=== PATIENT | male | born 1980 | race African-American/Black ===

== ENCOUNTER 2018-09-25 16:59 | Observation (INO) | payer BC ==
--- NOTE | 2018-09-25 17:37 | RAD REPORT ---
EXAM DESCRIPTION: US - Extremity Venous Uni Ltd - 09/25/2018 5:28 pm CLINICAL HISTORY: PAIN Leg swelling and edema. COMPARISON: <Comparisons> FINDINGS: Left lower extremity venous system was interrogated with Doppler technique. Normal flow, c ompressibility and augmentation was noted. There is no DVT present. IMPRESSION: No evidence of left lower extremity deep venous thrombosis.
[2018-09-25 19:10] LABS: Absolute Lymphocytes (CBC) 2.6 K/uL (0.7-4.9); Absolute Neutrophil 3.9 K/uL (1.8-8.0); Basophils % 0.5 % (0-1.3); Eosinophils % 1.4 % (0-4.4); Hematocrit 52.7 % (39.6-49.0); Lymphocytes % 34.5 % (15.3-44.8); MPV 7.6 fL (7.6-11.3); Monocytes % 13.1 % (3.3-12.3); RBC Red Blood Cell Count 6.12 M/uL (4.33-5.43)
[2018-09-25 19:14] LABS: Protime INR 1.04
[2018-09-25 19:30] LABS: ALT/SGPT 62 U/L (12-78); AST/SGOT 34 U/L (15-37); Albumin 4.2 g/dL (3.4-5.0); Alkaline Phosphatase 72 U/L (45-117); BUN Blood Urea Nitrogen 13 mg/dL (7-18); Bicarbonate 26 mmol/L (21-32); Bilirubin Direct 0.2 mg/dL (0-0.2); Bilirubin Total 0.5 mg/dL (0.2-1.0); Glucose Level 83 mg/dL (74-106); Magnesium 2.2 mg/dL (1.8-2.4); NT PRO-BNP 36 pg/mL (<125); Potassium 4.3 mmol/L (3.5-5.1); Protein, Total 7.7 g/dL (6.4-8.2); Sodium Level 140 mmol/L (136-145); Troponin (Emerg Dept Use Only) < 0.02 ng/mL (0.0-0.045)
--- NOTE | 2018-09-25 20:00 | EDPHYS ---
Physician Documentation [facility] Name: Eugene Betancur Age: 38 yrs Sex: Male : 1980 Arrival Date: 09/25/2018 Time: 17:02 Bed 28 Private MD: Denis Lehman ED Physician Fazal Rico HPI: 09/25 18:55 This 38 yrs old Black Male presents to ER via Ambulatory with complaints of Leg Pain, cp Shortness Of Breath. 18:55 The patient presents with pain, that is acute, tenderness. The complaints affect the cp left calf. Context: the patient can fully bear weight, the patient is able to ambulate, without difficulty. 18:55 The patient has shortness of breath with light activity. Onset: The symptoms/episode cp began/occurred 1.5 week(s) ago. Duration: The symptoms are continuous, and are steadily getting worse. Associated signs and symptoms: Pertinent negatives: chest pain, productive cough, diaphoresis, fever, hemoptysis. Severity of symptoms: in the emergency department the symptoms are unchanged despite home interventions. Treatment prior to arrival includes: no previous treatment. Historical: - Allergies: 17:05 No Known Allergies; sv - Home Meds: 17:07 Risperdal Oral [Active]; anastrozole 1 mg oral tab [Active]; sv - PMHx: 17:05 Hypertension; sv - PSHx: 17:05 fasciotomy left arm; sv - Immunization history:: Adult Immunizations not up to date. - Social history:: Smoking status: Patient/guardian denies using tobacco. - Ebola Screening: : No symptoms or risks identified at this time. ROS: 19:00 Constitutional: Negative for body aches, chills, fever, poor PO intake. cp 19:00 Eyes: Negative for injury, pain, redness, and discharge. cp 19:00 ENT: Negative for drainage from ear(s), ear pain, sore throat, difficulty swallowing, difficulty handling secretions. 19:00 Neck: Negative for pain with movement, pain at rest, stiffness. 19:00 Cardiovascular: Negative for chest pain, edema, palpitations. 19:00 Respiratory: Positive for shortness of breath, on exertion. Negative for cough, wheezing. 19:00 Abdomen/GI: Negative for abdominal pain, nausea, vomiting, and diarrhea, black/tarry stool, rectal bleeding. 19:00 Back: Negative for pain at rest, pain with movement. 19:00 : Negative for urinary symptoms. 19:00 Skin: Negative for rash. 19:00 Neuro: Negative for altered mental status, dizziness, headache, syncope, weakness. 19:00 All other systems are negative. Exam: 18:40 ECG was reviewed by the Attending Physician. cp 19:05 Constitutional: The patient appears in no acute distress, alert, awake, cp non-diaphoretic, non-toxic, well developed, well nourished. 19:05 Head/Face: Normocephalic, atraumatic. cp 19:05 Eyes: Periorbital structures: appear normal, Conjunctiva: normal, no exudate, no injection, Sclera: no appreciated abnormality, Lids and lashes: appear normal, bilaterally. 19:05 ENT: External ear(s): are unremarkable, Nose: is normal, Mouth: Lips: moist, Oral mucosa: pink and intact, moist, Posterior pharynx: is normal, airway is patent, no erythema, no exudate. 19:05 Neck: ROM/movement: is normal, is supple, without pain, no range of motions limitations. 19:05 Chest/axilla: Inspection: normal, Palpation: is normal, no crepitus, no tenderness. 19:05 Cardiovascular: Rate: normal, Rhythm: regular, Heart sounds: murmur, not appreciated, Edema: is not appreciated. 19:05 Respiratory: the patient does not display signs of respiratory distress, Respirations: normal, no use of accessory muscles, no retractions, no splinting, no tachypnea, labored breathing, is not present, Breath sounds: are clear throughout, no decreased breath sounds, no stridor, no wheezing. 19:05 Abdomen/GI: Inspection: abdomen appears normal, Palpation: abdomen is soft and non-tender, in all quadrants. 19:05 Back: pain, is absent, ROM is normal. 19:05 Musculoskeletal/extremity: DVT Exam: no swelling, negative Homans' sign noted on exam, no erythema, no increased warmth, pain, that is mild, of the left leg, tenderness, that is mild, of the left leg. 19:05 Skin: no rash present. 19:05 Neuro: Orientation: to person, place \T\ time. Mentation: is normal, Cerebellar function: is grossly normal, Motor: moves all fours, strength is normal, Sensation: is normal. Vital Signs: 17:05 BP 146 / 88; Pulse 99; Resp 18; Temp 98.2; Pulse Ox 97% ; Weight 99.79 kg; Height 5 ft. sv 6 in. (167.64 cm); Pain 0/10; 18:33 BP 123 / 93; Pulse 78; Resp 20 S; Pulse Ox 98% on R/A; ca1 19:04 BP 119 / 93; Pulse 69; Resp 17; Temp 98.3(O); Pulse Ox 99% on R/A; ca1 19:28 BP 136 / 95; Pulse 84; Resp 15 S; Temp 98.1(O); Pulse Ox 98% on R/A; ca1 20:34 BP 128 / 98; Pulse 65; Resp 17 S; Temp 97.7; Pulse Ox 99% on R/A; ca1 17:05 Body Mass Index 35.51 (99.79 kg, 167.64 cm) sv MDM: 18:53 Patient medically screened. 19:57 Data reviewed: vital signs, nurses notes, lab test result(s), EKG, I have discussed the patient's presentation/case with the attending Emergency Department Physician; and as a result, I will admit patient. Physician consultation: Denis Lehman MD was called at 19:57, was contacted at 19:57, regarding admission, to the telemetry unit. patient's condition. 09/25 18:55 Order name: Basic Metabolic Panel; Complete Time: 19:30 09/25 19:31 Interpretation: Normal except: CL 109; GFR 77. 09/25 18:55 Order name: CBC with Diff; Complete Time: 19:24 09/25 19:31 Interpretation: Normal except: RBC 6.12; HCT 52.7; MN% 13.1. 09/25 18:55 Order name: LFT's; Complete Time: 19:30 09/25 18:55 Order name: Magnesium; Complete Time: 19:30 09/25 18:55 Order name: NT PRO-BNP; Complete Time: 19:30 cp 09/25 18:55 Order name: PT-INR; Complete Time: 19:24 09/25 18:55 Order name: Troponin (emerg Dept Use Only); Complete Time: 19:30 cp 09/25 18:55 Order name: D-Dimer; Complete Time: 19:24 cp 09/25 20:18 Order name: Basic Metabolic Panel EDSD 09/25 20:18 Order name: Basic Metabolic Panel; Complete Time: 16:16 EDSD 09/25 20:18 Order name: Troponin I EDSD 09/25 20:18 Order name: Troponin I; Complete Time: 16:16 EDSD 09/25 20:19 Order name: CBC with Automated Diff EDSD 09/25 20:19 Order name: CBC with Automated Diff; Complete Time: 16:16 EDSD 09/25 17:08 Order name: US Extremity Venous Unilateral Ltd; Complete Time: 19:24 sv 09/25 18:55 Order name: EKG; Complete Time: 18:55 cp 09/25 18:55 Order name: Cardiac monitoring; Complete Time: 19:03 cp 09/25 18:55 Order name: EKG - Nurse/Tech; Complete Time: 19:03 cp 09/25 18:55 Order name: IV Saline Lock; Complete Time: 19:04 cp 09/25 18:55 Order name: Labs collected and sent; Complete Time: 19:04 cp 09/25 18:55 Order name: O2 Per Protocol; Complete Time: 19:04 cp 09/25 19:24 Order name: XRAY Chest (1 view); Complete Time: 16:16 cp 09/25 20:18 Order name: CONS Physician Consult [facility] 09/25 20:18 Order name: Regular [facility] 09/25 20:18 Order name: EKG Electrocardiogram [facility] 09/25 20:18 Order name: EKG Electrocardiogram [facility] 09/25 20:19 Order name: EKG Electrocardiogram [facility] 09/25 20:19 Order name: EKG Electrocardiogram [facility] 09/25 20:19 Order name: Troponin I; Complete Time: 16:16 EDSD 09/25 18:55 Order name: O2 Sat Monitoring; Complete Time: 19:04 cp EC:40 Rate is 77 beats/min. Rhythm is regular. PA interval is normal. QRS interval is normal. cp QT interval is normal. T waves are Inverted in leads II, III, aVF, V5, V6. Interpreted by me. Reviewed by me. Administered Medications: 20:22 Drug: Aspirin Chewable Tablet 324 mg Route: PO; ca1 20:45 Follow up: Response: No adverse reaction ca1 Disposition: 09/25/18 19:59 Hospitalization ordered by Denis Lehman for Observation. Preliminary diagnosis are Shortness of breath, Abnormal electrocardiogram [ECG] [EKG]. - Bed requested for Telemetry/MedSurg (observation). - Status is Observation. ca1 - Condition is Stable. - Problem is new. - Symptoms are unchanged. UTI on Admission? No Addendum: 09/27/2018 07:01 Co-signature as Attending Physician, Fazal Rico MD. r n Signatures: Dispatcher [employer] EDMS Alma Vincent, RN RN Gale Emery RN RN dw Fazal Rico MD MD rn Page, Corey, PA PA cp Shaniqua Madison RN RN ca1 Corrections: (The following items were deleted from the chart) 09/25 19:31 19:31 Normal except: RBC 6.12; HCT 52.7. cp cp 20:21 19:59 Hospitalization Ordered by Denis Lehman MD for Observation. Preliminary dw diagnosis is Shortness of breath; Abnormal electrocardiogram [ECG] [EKG]. Bed requested for Telemetry/MedSurg (observation). Status is Observation. Condition is Stable. Problem is new. Symptoms are unchanged. UTI on Admission? No. cp 20:53 20:21 09/25/2018 19:59 Hospitalization Ordered by Denis Lehman MD for Observation. ca1 Preliminary diagnosis is Shortness of breath; Abnormal electrocardiogram [ECG] [EKG]. Bed requested for Telemetry/MedSurg (observation). Status is Observation. Condition is Stable. Problem is new. Symptoms are unchanged. UTI on Admission? No. dw
--- NOTE | 2018-09-25 20:00 | ER ---
Nurse's Notes [facility] Name: Eugene Betancur Age: 38 yrs Sex: Male : 1980 Arrival Date: 09/25/2018 Time: 17:02 Bed 28 Private MD: Denis Lehman Diagnosis: Shortness of breath;Abnormal electrocardiogram [ECG] [EKG] Presentation: 09/25 17:04 Presenting complaint: Patient states: SOB x 1.5 weeks and right calf pain x 1 week. sv Stated around the time that he noticed the SOB he started taking Anastrozole as well. Transition of care: patient was not received from another setting of care. Onset of symptoms was September 2018. Initial Sepsis Screen: Does the patient meet any 2 criteria? No. Patient's initial sepsis screen is negative. Does the patient have a suspected source of infection? No. Patient's initial sepsis screen is negative. Care prior to arrival: None. 17:04 Method Of Arrival: Ambulatory sv 17:04 Acuity: MELECIO 3 sv 18:39 Risk Assessment: Do you want to hurt yourself or someone else? Patient reports no ca1 desire to harm self or others. Triage Assessment: 17:04 General: Appears in no apparent distress. uncomfortable, well groomed, well developed, sv Behavior is calm, cooperative, appropriate for age. Pain: Denies pain. Neuro: Level of Consciousness is awake, alert, obeys commands, Oriented to person, place, time, situation. Respiratory: Reports shortness of breath Airway is patent Respiratory effort is even, unlabored, Respiratory pattern is regular, symmetrical, Onset: The symptoms/episode began/occurred 1.5 weeks ago, the patient has mild shortness of breath. Historical: - Allergies: 17:05 No Known Allergies; sv - Home Meds: 17:07 Risperdal Oral [Active]; anastrozole 1 mg oral tab [Active]; sv - PMHx: 17:05 Hypertension; sv - PSHx: 17:05 fasciotomy left arm; sv - Immunization history:: Adult Immunizations not up to date. - Social history:: Smoking status: Patient/guardian denies using tobacco. - Ebola Screening: : No symptoms or risks identified at this time. Screenin:33 Abuse screen: Denies threats or abuse. Denies injuries from another. Nutritional ca1 screening: No deficits noted. Tuberculosis screening: No symptoms or risk factors identified. Fall Risk None identified. Assessment: 18:33 General: Appears in no apparent distress. comfortable, Behavior is calm, cooperative, ca1 appropriate for age. Pain: Complains of pain in left calf Pain does not radiate. Pain currently is 4 out of 10 on a pain scale. Neuro: Level of Consciousness is awake, alert, obeys commands, Oriented to person, place, time, situation. Cardiovascular: Heart tones S1 S2 present Capillary refill < 3 seconds Patient's skin is warm and dry. Rhythm is sinus rhythm. Respiratory: Reports shortness of breath on exertion since 1.5 weeks ago Airway is patent Respiratory effort is even, unlabored, Respiratory pattern is regular, symmetrical, Breath sounds are clear bilaterally. GI: Abdomen is round non-distended, Bowel sounds present X 4 quads. Abd is soft and non tender X 4 quads. : No deficits noted. No signs and/or symptoms were reported regarding the genitourinary system. EENT: No deficits noted. No signs and/or symptoms were reported regarding the EENT system. Derm: Skin is intact, is healthy with good turgor, Skin is pink, warm \T\ dry. Musculoskeletal: Circulation, motion, and sensation intact. Capillary refill < 3 seconds, Range of motion: intact in all extremities. 19:28 Reassessment: Patient appears in no apparent distress at this time. Patient and/or ca1 family updated on plan of care and expected duration. Pain level reassessed. Patient is alert, oriented x 3, equal unlabored respirations, skin warm/dry/pink. 20:34 Reassessment: Patient appears in no apparent distress at this time. Patient is alert, ca1 oriented x 3, equal unlabored respirations, skin warm/dry/pink. Vital Signs: 17:05 BP 146 / 88; Pulse 99; Resp 18; Temp 98.2; Pulse Ox 97% ; Weight 99.79 kg; Height 5 ft. sv 6 in. (167.64 cm); Pain 0/10; 18:33 BP 123 / 93; Pulse 78; Resp 20 S; Pulse Ox 98% on R/A; ca1 19:04 BP 119 / 93; Pulse 69; Resp 17; Temp 98.3(O); Pulse Ox 99% on R/A; ca1 19:28 BP 136 / 95; Pulse 84; Resp 15 S; Temp 98.1(O); Pulse Ox 98% on R/A; ca1 20:34 BP 128 / 98; Pulse 65; Resp 17 S; Temp 97.7; Pulse Ox 99% on R/A; ca1 17:05 Body Mass Index 35.51 (99.79 kg, 167.64 cm) sv ED Course: 17:02 Patient arrived in ED. mr 17:03 Denis Lehman MD is Private Physician. mr 17:05 Triage completed. sv 17:07 Arm band placed on. sv 17:28 US Extremity Venous Unilateral Ltd In Process Unspecified. EDMS 17:29 Ultrasound completed. Patient tolerated well. Patient taken to [facility], Patient moved lc3 back from ultrasound. 18:28 Shaniqua Madison RN is Primary Nurse. ca1 18:33 Patient has correct armband on for positive identification. Placed in gown. Bed in low ca1 position. Call light in reach. Side rails up X 1. dynamite reclaimer on. Pulse ox on. NIBP on. Warm blanket given. 18:49 Isaiah Mesa PA is PHCP. cp 18:50 Fazal Rico MD is Attending Physician. cp 19:00 Inserted saline lock: 20 gauge in left antecubital area, using aseptic technique. Blood ca1 collected. 19:59 Denis Lehman MD is Hospitalizing Provider. cp 20:12 XRAY Chest (1 view) In Process Unspecified. EDMS 20:32 No provider procedures requiring assistance completed. Patient admitted, IV remains in ca1 place. Administered Medications: 20:22 Drug: Aspirin Chewable Tablet 324 mg Route: PO; ca1 20:45 Follow up: Response: No adverse reaction ca1 Outcome: 19:59 Decision to Hospitalize by Provider. cp 20:43 Admitted to Tele accompanied by tech, via wheelchair, room 408, with chart, Report ca1 called to Katie Hollingsworth RN 20:43 Condition: stable 20:43 Instructed on the need for admit. 20:53 Patient left the ED. ca1 Signatures: Dispatcher [employer] EDMS Alma Vincent RN RN Terra Godwin mr Isaiah Mesa PA PA cp Maria Victoria Guevara lc3 Shaniqua Madison RN RN ca1 Corrections: (The following items were deleted from the chart) 17:07 17:04 Presenting complaint: Patient states: SOB x 1.5 weeks and right calf pain x 1 sv week. sv
--- NOTE | 2018-09-25 20:24 | RAD REPORT ---
EXAM DESCRIPTION: RAD - Chest Single View - 09/25/2018 8:12 pm CLINICAL HISTORY: SOB Chest pain. COMPARISON: CHEST PA AND LAT 2 VIEW dated 08/25/2013; CHEST SINGLE VIEW dated 10/14/2011; ABDOMEN ACUT E SERIES dated 04/20/2010; CHEST PA AND LAT 2 VIEW dated 06/14/2008 FINDINGS: Portable technique limits examination quality. The lungs are grossly clear. The heart is normal in size. No displaced fractures. IMPRESSION: No acute intrathoracic process suspected.
[2018-09-25] MEDS ORDERED: ASPIRIN 81 MG CHEWABLE TABLET ONE (20:34)
[2018-09-25 22:42] VITALS: BMI 35.2
[2018-09-26 03:37] LABS: Absolute Lymphocytes (CBC) 3.2 K/uL (0.7-4.9); Absolute Neutrophil 3.4 K/uL (1.8-8.0); Basophils % 0.4 % (0-1.3); Eosinophils % 2.7 % (0-4.4); Hematocrit 51.3 % (39.6-49.0); Lymphocytes % 40.8 % (15.3-44.8); MPV 7.9 fL (7.6-11.3); Monocytes % 12.8 % (3.3-12.3); RBC Red Blood Cell Count 5.98 M/uL (4.33-5.43)
[2018-09-26 03:46] LABS: Potassium 4.1 mmol/L (3.5-5.1)
--- NOTE | 2018-09-26 07:56 | EKG ---
Test Date: 2018-09-25 Test Time: 18:39:20 Wire Dropper: CHYNA MEASUREMENT RESULTS: Intervals: Rate: 77 IN: 166 QRSD: 84 QT: 358 QTc: 405 [place]: P: 18 IN: 166 QRS: 46 T: -28 INTERPRETIVE STATEMENTS: Normal sinus rhythm ST & T wave abnormality, consider inferolateral ischemia Abnormal ECG Compared to ECG 04/20/2010 01:20:40 ST (T wave) deviation now present Possible ischemia now present Left-axis deviation no longer present Electronically Signed On 09-26-18 07:55:24 CDT by Shaun Cohen
[2018-09-26 08:14] LABS: Urine Appearance CLEAR; Urine Bilirubin NEGATIVE (NEG); Urine Blood NEGATIVE (NEG); Urine Color YELLOW; Urine Glucose NEGATIVE (NEG); Urine Protein NEGATIVE (NEG); Urine Specific Gravity 1.025 (1.005-1.030); Urine Urobilinogen 0.2 mg/dL (0.2-1.0)
[2018-09-26] MEDS ORDERED: ENOXAPARIN 40 MG/0.4 ML SQ SCH (09:00)
[2018-09-26] MEDS ORDERED: ASPIRIN EC 81 MG TAB PO SCH (09:00)
[2018-09-26 10:16] LABS: Urine Bacteria <20 /HPF (NONE SEEN); Urine Culture Reflex Order NOT NEEDED; Urine RBC NONE SEEN /HPF (NONE SEEN)
--- NOTE | 2018-09-26 11:45 | RAD REPORT ---
EXAM DESCRIPTION: CT - Chest Angio - 09/26/2018 11:21 am CLINICAL HISTORY: Shortness of breath COMPARISON: September 25, 2018 chest x-ray TECHNIQUE: Dynamically enhanced axial 3 mm thick images of the chest were obtained during administra tion of <100> mL Isovue 370 IV contrast. Coronal and oblique reconstruction images were generated and reviewed. Exam utilizes a protocol for optimal evaluation of pulmonary arterial tree. Maximum intensity projections 3D imaging was utilized All CT scans are performed using dose optimization technique as appropriate and may include automated exposure control or mA/KV adjustment according to patient size. FINDINGS: A pulmonary embolus is not seen. The main pulmonary artery is dilated. The heart is mildly enlarged. Evaluation of the peripheral pulmonary arteries is suboptimal secondary to respiratory mot ion artifact A thoracic aortic aneurysm is not noted. A pleural effusion is not seen. A pericardial effusion is not seen. A lung consolidation is not present. IMPRESSION: Negative for a pulmonary embolism. Dilated main pulmonary artery is nonspecific. It can be seen with pulmonary arterial hypertension
[2018-09-26 13:51] VITALS: TEMP 97.8
[2018-09-26 15:59] VITALS: O2SAT 95
[2018-09-26 16:19] VITALS: BP 144/71
--- NOTE | 2018-09-26 23:01 | CON ---
Date of Consultation: 09/26/2018 Reason For Consultation: Shortness of breath. History Of Present Illness: Mr. Betancur is a 38-year-old, black male with history of hypertension who came in mostly because of leg pain and shortness of breath. He denied any chest pain, nausea, vomiti ng, diaphoresis, PND, orthopnea, pedal edema, palpitations, or syncope. By the time I saw him, he burgos d negative laboratory evaluation. EKG showed LVH. Venous Doppler of the legs was negative. Chest x -ray was negative. Troponin was negative. CPKs and MBs were negative. BNP was negative. Past Medical History: Hypertension. Allergies: NONE. Medications: At home include lisinopril. Review of Systems: Negative. Social History: Negative. Family History: Negative. Physical Examination: GENERAL: He is a very pleasant man, in no acute distress. VITAL SIGNS: Stable. Afebrile. HEENT: Exam is negative. NECK: Supple with no bruit. CHEST: Clear. CARDIAC: Exam revealed a regular rhythm and rate. No murmurs, gallops, or rubs. ABDOMEN: Benign. EXTREMITIES: Revealed no clubbing, cyanosis, or edema. Diagnostic Data: As stated earlier. Impression And Plan: 1.Leg pain, most likely musculoskeletal. Negative venous Doppler. 2.Shortness of breath, may be secondary to hypertension, could be some left ventricular hypertrophy related symptoms or diastolic dysfunction. An echocardiogram is pending and I agree with that. If h is echocardiogram is normal, he can certainly go home and we will be happy to see him as an outpatien t if his symptoms reoccur. I do not think Mr. Betancur has any evidence of coronary artery disease clin ically or by symptoms or by risk factors. NB/MODL Voice ID: [id number] Report ID: [id number]
--- NOTE | 2018-09-27 07:53 | EKG ---
Test Date: 2018-09-26 Test Time: 07:39:24 Merchandise Planning Manager: VAL MEASUREMENT RESULTS: Intervals: Rate: 77 ID: [id number] QRSD: 88 QT: 368 QTc: 416 [place]: P: 13 ID: [id number] QRS: 43 T: -71 INTERPRETIVE STATEMENTS: Normal sinus rhythm ST & T wave abnormality, consider inferolateral ischemia Abnormal ECG Compared to ECG 09/25/2018 18:39:20 No significant changes Electronically Signed On 09-27-18 07:52:36 CDT by Shaun Cohen
--- NOTE | 2018-09-27 08:23 | ECHO ---
HEIGHT: 5 ft 6 in WEIGHT: 218 lb 0 oz DATE OF STUDY: 09/26/[address]: Isaiah Mesa PAC 2-DIMENSIONAL: YES M.MODE: YES DOPPLER: YES COLOR FLOW: YES TDS: NO PORTABLE: NO DEFINITY: NO BUBBLE STUDY: NO DIAGNOSIS: ABNORMAL EKG, SHORTNESS OF BREATH CARDIAC HISTORY: CATHERIZATION: NO SURGERY: NO PROSTHETIC VALVE: NO PACEMAKER: NO MEASUREMENTS (cm) DIASTOLIC (NORMALS) SYSTOLIC (NORMALS) IVSd 1.1 (0.6-1.2) LA Diam 3.2 (1.9-4.0) LVEF 64% LVIDd 5.1 (3.5-5.7) LVIDs 3.4 (2.0-3.5) %FS 35% LVPWd 1.1 (0.6-1.2) Ao Diam 3.0 (2.0-3.7) 2 DIMENSIONAL ASSESSMENT: RIGHT ATRIUM: NORMAL LEFT ATRIUM: NORMAL RIGHT VENTRICLE: NORMAL LEFT VENTRICLE: NORMAL TRICUSPID VALVE: NORMAL MITRAL VALVE: NORMAL PULMONIC VALVE: NORMAL AORTIC VALVE: NORMAL PERICARDIAL EFFUSION: NONE AORTIC ROOT: NORMAL LEFT VENTRICULAR WALL MOTION: NORMAL DOPPLER/COLOR FLOW: NORMAL COMMENTS: NORMAL 2D ECHOCARIOGRAM WITH DOPPLER. TECHNOLOGIST: Ryan ZEPEDA
--- NOTE | 2018-09-28 01:45 | SS ---
Date of Discharge: 09/26/2018 Hospital Course: The patient was admitted to the hospital on 09/25 after presented to the emergency room complaining of unusual amount of exertional dyspnea associated with some leg pain, which he felt possibly was a clot and/or excessive workout on the treadmill. He was seen in the emergency room. A workup including Doppler of his calf on the left showed no clots. Due to the slight changes in his EKG with some ST inversions, we decided to admit him for telemetry and have Cardiology evaluate. He is also taking hormone replacement therapy and had increased his doses as of late, possibly creating the above-outlined changes and symptoms. In any event during his hospital stay, he was asymptomatic , telemetry was normal, echo was basically normal, and he was discharged to follow up with myself for a repeat EKG and Cardiology felt a stress test was indicated. Final Diagnoses: Leg pain, muscular; exertional dyspnea, possibly secondary to hormone replacement t herapy. HR/MODL Voice ID: [id number] Report ID: [id number]
== END 2018-09-26 18:23 | disposition home or self-care (01) ==
LOC: ER 16:59 → ERHOLD 20:43 → 4TH 20:44
PROVIDERS: ADMIT Family Medicine; ATTEND Family Medicine
DX: M79.605 Pain in left leg (principal); R06.09 Other forms of dyspnea; R06.02 Shortness of breath; R94.31 Abnormal electrocardiogram [ECG] [EKG]; I10 Essential (primary) hypertension; Z79.899 Other long term (current) drug therapy
CPT/HCPCS: 36415; 71045; 71275; 80048; 80076; 81001; 83735; 83880; 84484; 85025; 85379; 85610; 93005; 93306; 93971; 99285; G0378; J1650; Q9967